=== PATIENT | male | born 1965 | race Caucasian/White ===

== ENCOUNTER → 2016-09-08 | Outpatient (CLI) | payer BC ==
[~2016-09-08] MED LIST: ALEVE220 MG PO; ANTACID LIQUID355 ML PO; B COMPLETE1 EACH PO; DEXAMETHASONE4 MG PO; EXCEDRIN EXTRA1 EACH PO; FOLIC ACID1 MG PO; IBUPROFEN200 M1 PO; LORAZEPAM0.5 MG PO; NEURONTIN300 MG PO; NICORETTE2 M1 BC; ONDANSETRON HCL8 MG PO; OXYCODONE HCL15 MG PO; OXYCONTIN10 MG PO
== END | disposition home or self-care (01) ==
LOC: RAD 09:50
DX: C34.90 Malignant neoplasm of unspecified part of unspecified bronchus or lung (principal); R22.2 Localized swelling, mass and lump, trunk
CPT/HCPCS: 71260